=== PATIENT | male | born 1960 | race Caucasian/White ===

== ENCOUNTER 2021-04-10 08:31 | Outpatient (REF) | payer OTHER, SELFPAY ==
[2021-04-10 10:16] LABS: Creatinine Urine 142.05 mg/dL; Microalbum/Creatinine Ratio Ur 11.2 ug/mg cr
[2021-04-10 10:27] LABS: Alanine Aminotransferase 30 U/L (0-40); Albumin Level 4.3 g/dL (3.5-5.0); Alkaline Phosphatase 84 U/L (39-117); Anion Gap 11 (12-20); Aspartate Amino Transferase 21 U/L (5-37); Bilirubin Total 0.9 mg/dL (0.0-1.0); Blood Urea Nitrogen 17 mg/dL (9-16); Carbon Dioxide 26 mmol/L (22-29); Chloride 108 mmol/L (96-108); Cholesterol 142 mg/dL; Estimated Glomerular Filt Rate > 60; Glucose Fasting 136 mg/dL (60-99); HDL Cholesterol 34 mg/dL; LDL Cholesterol Calculated 87 mg/dl; Potassium 4.4 mmol/L (3.3-5.1); Sodium 141 mmol/L (135-145); Total Protein 6.8 g/dL (6.5-8.0); Triglycerides 109 mg/dL
== END 2021-04-10 08:32 | disposition home or self-care (01) ==
LOC: HO.LAB 08:31
PROVIDERS: PCP Internal Medicine; Visit Provider Internal Medicine
DX: E11.9 Type 2 diabetes mellitus without complications (principal); E78.5 Hyperlipidemia, unspecified
CPT/HCPCS: 36415; 80053; 80061; 80156; 82043

== ENCOUNTER 2022-11-12 07:37 | Outpatient (REF) | payer OTHER, SELFPAY ==
[2022-11-12 09:19] LABS: Alanine Aminotransferase 30 U/L (0-40); Albumin Level 4.2 g/dL (3.5-5.0); Alkaline Phosphatase 79 U/L (39-117); Anion Gap 13 (12-20); Aspartate Amino Transferase 23 U/L (5-37); Bilirubin Total 0.8 mg/dL (0.0-1.0); Blood Urea Nitrogen 15 mg/dL (9-16); Calcium 9.2 mg/dL (8.4-10.2); Carbon Dioxide 25 mmol/L (22-29); Chloride 109 mmol/L (96-108); Cholesterol 125 mg/dL; Estimated Glomerular Filt Rate > 60; Glucose Fasting 112 mg/dL (60-99); HDL Cholesterol 37 mg/dL; LDL Cholesterol Calculated 70 mg/dl; Potassium 4.5 mmol/L (3.3-5.1); Sodium 142 mmol/L (135-145); Total Protein 6.4 g/dL (6.5-8.0); Triglycerides 93 mg/dL
[2022-11-12 12:42] LABS: Creatinine Urine 133.02 mg/dL; Microalbum/Creatinine Ratio Ur 11.2 ug/mg cr
== END 2022-11-12 07:38 | disposition home or self-care (01) ==
LOC: HO.LAB 07:37
PROVIDERS: PCP Internal Medicine; Visit Provider Internal Medicine
DX: E78.5 Hyperlipidemia, unspecified (principal); E11.9 Type 2 diabetes mellitus without complications
CPT/HCPCS: 36415; 80053; 80061; 82043

== ENCOUNTER 2023-05-15 16:17 | Outpatient (AMB) | payer OTHER, SELFPAY ==
[2023-05-15 16:19] VITALS: BP 160/98; BMI 27.8
--- NOTE | 2023-05-15 16:19 | A.OFFPC_ITS ---
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 Accompanied by: Self / Same As Patient Allergies peanut [PEANUT] Allergy (Severe, Verified 05/15/23 16:41) ANAPHYLAXIS Medication List - Last Reconciled 05/15/23 by Violeta Ann MD amlodipine 10 mg PO DAILY 90 days atorvastatin 20 mg PO BEDTIME 90 days ibuprofen 800 mg PO Q8H PRN lisinopril 30 mg PO DAILY 90 days metformin 850 mg PO BID 90 days Tobacco use date assessed: 05/15/23 Dental Screening Dental Screen Date: 05/15/23 Did you have a dental visit in the last 12 months?: Yes Did you have a dental problem in the last 6 months where you did not have access to dental care?: No Was dental information given to patient?: Patient has dentist HPI HPI Comments History of Present Illness Details This is a 62-year-old male with diabetes mellitus type 2 that comes for his physical exam. A1c is within goal. Last diabetic eye exam was this month. Last colonoscopy was 2015. No chest pain or shortness of breath. Blood pressure elevated and he forgot his medications today. Blood pressure will be recheck by nurse navigator in 3 weeks. [facility] Medical History (Updated 05/15/23 @ 16:49 by Violeta Ann MD) Allergic rhinitis Diabetes mellitus Essential hypertension Pure hypercholesterolemia Right shoulder pain Surgical History History of lipoma Family History Father No problems noted. Mother Diabetes Maternal Grandmother No problems noted. Maternal Grandfather No problems noted. Paternal Grandmother No problems noted. Paternal Grandfather No problems noted. Social History Housing: House Alcohol intake: current Alcohol intake frequency: holidays/special occasions only Alcohol type: other Patient Tobacco Use Status: Former Tobacco user e-Cigarette/Vaping Use: Never Used Second Hand Smoke Exposure: Yes service: No Current occupational status: employed Current occupational exposures/hazards: No Cognitive needs: No Hearing needs: No Vision needs: No Questionnaire Thrive Questionnaire Date Thrive assessed: 11/09/22 ERIC-7 AMB Questionnaire ERIC-7 Date ERIC - 7 assessed: 11/09/22 Source: Developed by Drs. Mert De La Torre, Rhona Linn, Ilya Musa and colleagues, with an educational kristina from [employer]. Review of Systems Const All systems reviewed & are unremarkable except as noted in HPI and below Eyes Reports no additional complaints, Denies change in vision and Denies other visual disturbances Card Denies chest pain at rest, Denies chest pain with activity, Denies edema, Denies irregular heart rhythm, Denies claudication, Denies dyspnea, Denies dyspnea on exertion, Denies orthopnea, Denies paroxysmal nocturnal dyspnea and Denies slow heart rate Resp Denies cough, Denies dyspnea and Denies dyspnea on exertion GI Denies abdominal pain, Denies change in bowel habits, Denies excessive flatus, Denies nausea and Denies vomiting Denies urinary hesitancy, Denies urinary incontinence and Denies urinary urgency Musc Denies abnormal gait, Denies atrophy, Denies deformity and Denies limited range of motion Skin/Breast Denies bleeding lesions, Denies changing lesions and Denies rash Neuro Denies abnormal gait and Denies lack of coordination Physical exam (Primary Care) Vital Signs: Last Vital Signs BP 160/98 H 05/15/23 16:19 BMI result Body Mass Index 27.8 Tobacco/Smoking Status: Tobacco use Status Tobacco use date assessed 05/15/23 05/15/23 16:25 Patient Tobacco Use Status Former Tobacco user 05/15/23 16:25 e-Cigarette/Vaping Use Never Used 05/15/23 16:25 Thrive Assessment: Date of Thrive Assessment Date Thrive assessed 11/09/22 05/15/23 16:25 Const Orientation/consciousness: patient oriented x3 HENMT Head: Yes normal to inspection, Yes normocephalic and Yes atraumatic Ears: external ears normal Eyes General: appearance normal, both eyes and all related structures Eyelids: Yes eyelids normal Conjunctivae: conjunctivae normal Neck Neck: Yes normal visual inspection and Yes supple Resp Effort & Inspection: normal respiratory effort Auscultation: clear to auscultation bilaterally Cardio Jugular venous distension: no JVD Rate: regular rate Rhythm: regular rhythm Heart sounds: S1 normal heart sound present and S2 normal heart sound present GI Inspection: Yes normal to inspection Palpation (GI): Soft to palpation and nontender Auscultation: normal bowel sounds Skin General skin exam: no rashes or lesions noted Neuro General: patient oriented x3 and no focal motor deficits Extrem General: Yes full ROM Psych Appearance: grossly normal Results AMB Hemoglobin A1c AMB Hemoglobin A1c 6.7 % Last Edit by RYLEE Aceves on 05/15/23 16:3 5 Results Reviewed Results Reviewed: Laboratory Last Values Hgb A1c (Clinic) 6.7 % (4.0-6.0) H 05/15/23 16:30 Assessment and Plan Assessment & Plan (1) Physical exam: Code(s): Z00.00 - Encounter for general adult medical examination without abnormal findings Plan: Repeat in a year (2) Diabetes mellitus: Code(s): E11.9 - Type 2 diabetes mellitus without complications Qualifiers: Diabetes mellitus type: type 2 Diabetes mellitus intermediate insulin use: without intermediate use Diabetes mellitus complication status: without complication Qualified Code(s): E11.9 - Type 2 diabetes mellitus without complications Plan: Continue metformin. A1c goal is equal or less than 7%. Orders: Orders Comprehensive [place]. Panel Fast 5 Months E11.9 - Type 2 diabetes mellitus without complications Lipid Panel 5 Months E78.5 - Hyperlipidemia, unspecified Microalbumin, Random (w Creat) 5 Months E11.9 - Type 2 diabetes mellitus without complications AMB Hemoglobin A1c Today E11.9 - Type 2 diabetes mellitus without complications Coding Level of Care Code Est Pt Prev Care 40-64y(50867) Diagnoses Physical exam Z00.00 Diabetes mellitus E11.9 Diabetes mellitus type: type 2 Diabetes mellitus lobsterman insulin use: without lobsterman use Diabetes mellitus complication status: without complication Time Spent (min) 33
[2023-05-15 16:51] VITALS: BP 150/90
== END 2023-05-15 16:50 | disposition home or self-care (01) ==
PROVIDERS: Visit Provider Internal Medicine
DX: Z00.00 Encounter for general adult medical examination without abnormal findings (principal); E11.9 Type 2 diabetes mellitus without complications
CPT/HCPCS: 83036; 99396

== ENCOUNTER 2023-09-14 08:56 | Outpatient (REF) | payer OTHER, SELFPAY ==
[2023-09-14 09:49] LABS: Alanine Aminotransferase 22 U/L (0-40); Albumin Level 4.2 g/dL (3.5-5.0); Alkaline Phosphatase 73 U/L (39-117); Anion Gap 13 (12-20); Aspartate Amino Transferase 17 U/L (5-37); Bilirubin Total 0.5 mg/dL (0.0-1.0); Blood Urea Nitrogen 15 mg/dL (9-16); Carbon Dioxide 26 mmol/L (22-29); Chloride 109 mmol/L (96-108); Cholesterol 143 mg/dL (<200); Estimated Glomerular Filt Rate > 60; Glucose Fasting 126 mg/dL (60-99); HDL Cholesterol 40 mg/dL (>40); LDL Cholesterol Calculated 91 mg/dL (<100); Potassium 3.7 mmol/L (3.3-5.1); Sodium 144 mmol/L (135-145); Total Protein 6.8 g/dL (6.5-8.0); Triglycerides 64 mg/dL (<150)
[2023-09-14 12:40] LABS: Creatinine Urine 148.65 mg/dL; Microalbum/Creatinine Ratio Ur 12.7 ug/mg cr (<30)
== END 2023-09-14 08:57 | disposition home or self-care (01) ==
LOC: HO.LAB 08:56
PROVIDERS: PCP Internal Medicine; Visit Provider Internal Medicine
DX: E11.9 Type 2 diabetes mellitus without complications (principal); E78.5 Hyperlipidemia, unspecified
CPT/HCPCS: 36415; 80053; 80061; 82043; 82570

== ENCOUNTER 2023-09-20 16:23 | Outpatient (AMB) | payer OTHER, SELFPAY ==
--- NOTE | 2023-09-20 16:27 | MHC.PC.OV ---
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 Accompanied by: Self / Same As Patient Allergies peanut [PEANUT] Allergy (Severe, Verified 09/20/23 16:40) ANAPHYLAXIS Medication List - Last Reconciled 09/20/23 by Violeta Ann MD amlodipine 10 mg PO DAILY 90 days atorvastatin 20 mg PO BEDTIME 90 days ibuprofen 800 mg PO Q8H PRN lisinopril 30 mg PO DAILY 90 days metformin 850 mg PO BID 90 days Tobacco use date assessed: 05/15/23 Dental Screening Dental Screen Date: 09/20/23 Did you have a dental visit in the last 12 months?: No Did you have a dental problem in the last 6 months where you did not have access to dental care?: No Was dental information given to patient?: Patient has dentist HPI HPI Comments History of Present Illness Details This is a 63-year-old male with diabetes mellitus type 2, hypertension, pure hypercholesterolemia and allergic rhinitis that comes today for follow-up on his conditions. A1c elevated and he is only taking metformin once a day and was advised to take it twice a day. Blood pressure elevated and he forgot to take his medications today. Blood pressure will be recheck in 3 weeks by nurse navigator. LDL not on goal and he admits not been compliant with low-cholesterol diet. Lipid panel will be repeated in 4 months. No chest pain or shortness of breath. Allergic rhinitis stable with antihistamines as needed. [facility] Medical History Right shoulder pain Allergic rhinitis Pure hypercholesterolemia Diabetes mellitus Essential hypertension Surgical History History of lipoma Family History Father No problems noted. Mother Diabetes Maternal Grandmother No problems noted. Maternal Grandfather No problems noted. Paternal Grandmother No problems noted. Paternal Grandfather No problems noted. Social History Housing: House Alcohol intake: current Alcohol intake frequency: holidays/special occasions only Alcohol type: other Patient Tobacco Use Status: Former Tobacco user e-Cigarette/Vaping Use: Never Used Second Hand Smoke Exposure: Yes service: No Current occupational status: employed Current occupational exposures/hazards: No Cognitive needs: No Hearing needs: No Vision needs: No Questionnaire Thrive Questionnaire Date Thrive assessed: 11/09/22 ERIC-7 AMB Questionnaire ERIC-7 Date ERIC - 7 assessed: 11/09/22 Source: Developed by Drs. Mert De La Torre, Rhona Linn, Ilya Musa and colleagues, with an educational kristina from [employer]. Review of Systems Const All systems reviewed & are unremarkable except as noted in HPI and below Eyes Reports no additional complaints, Denies change in vision and Denies other visual disturbances Card Denies chest pain at rest, Denies chest pain with activity, Denies edema, Denies irregular heart rhythm, Denies claudication, Denies dyspnea, Denies dyspnea on exertion, Denies orthopnea, Denies paroxysmal nocturnal dyspnea and Denies slow heart rate Resp Denies cough, Denies dyspnea and Denies dyspnea on exertion GI Denies abdominal pain, Denies change in bowel habits, Denies excessive flatus, Denies nausea and Denies vomiting Denies urinary hesitancy, Denies urinary incontinence and Denies urinary urgency Musc Denies abnormal gait, Denies atrophy, Denies deformity and Denies limited range of motion Skin/Breast Denies bleeding lesions, Denies changing lesions and Denies rash Neuro Denies abnormal gait, Denies behavioral changes and Denies lack of coordination Psych Denies behavioral changes Physical exam (Primary Care) Vital Signs: Last Vital Signs BP 180/102 H 09/20/23 16:28 BMI result Body Mass Index 27.9 Tobacco/Smoking Status: Tobacco use Status Tobacco use date assessed 05/15/23 09/20/23 16:32 Patient Tobacco Use Status Former Tobacco user 09/20/23 16:32 e-Cigarette/Vaping Use Never Used 09/20/23 16:32 Thrive Assessment: Date of Thrive Assessment Date Thrive assessed 11/09/22 09/20/23 16:32 Eyes General: appearance normal, both eyes and all related structures Eyelids: Yes eyelids normal Conjunctivae: conjunctivae normal Neck Neck: Yes normal visual inspection and Yes supple Resp Effort & Inspection: normal respiratory effort Auscultation: clear to auscultation bilaterally Cardio Jugular venous distension: no JVD Rate: regular rate Rhythm: regular rhythm Heart sounds: S1 normal heart sound present and S2 normal heart sound present Extrem General: Yes full ROM Office Procedures Flu Questionnaire Does the patient have a severe egg allergy?: No Results AMB Hemoglobin A1c AMB Hemoglobin A1c 7.2 % Last Edit by RYLEE Aceves on 09/20/23 16:38 Immunizations flu vacc [id number] 6mos up(PF) 60 mcg(15 mcgx4)/0.5 mL IM syringe Performing Provider: Violeta Ann MD [facility] Documented (not given) by: RYLEE Aceves on 09/20/23 16:37 Reason Not Given: Patient Refused Results Reviewed Results Reviewed: Laboratory Last Values Hgb A1c (Clinic) 7.2 % (4.0-6.0) H 09/20/23 16:33 Assessment and Plan Assessment & Plan (1) Diabetes mellitus: Code(s): E11.9 - Type 2 diabetes mellitus without complications Qualifiers: Diabetes mellitus type: type 2 Diabetes mellitus mcfp insulin use: without predatory animal exterminator use Diabetes mellitus complication status: without complication Qualified Code(s): E11.9 - Type 2 diabetes mellitus without complications Plan: Start taking metformin twice a day. A1c goal is equal or less than 7%. (2) Essential hypertension: Code(s): I10 - Essential (primary) hypertension Plan: Be compliant with amlodipine and lisinopril. Blood pressure goal is equal or less than 130/80. Recheck blood pressure with nurse navigator in 3 weeks. (3) Pure hypercholesterolemia: Code(s): E78.00 - Pure hypercholesterolemia, unspecified Plan: Continue statins. Be compliant with low-cholesterol diet. LDL goal is less than 70. (4) Allergic rhinitis: Code(s): J30.9 - Allergic rhinitis, unspecified Plan: Continue antihistamines as needed. Orders: Orders Influenza [id number] Immunization Today Z23 - Encounter for immunization AMB Hemoglobin A1c Today E11.9 - Type 2 diabetes mellitus without complications Lipid Panel 4 Months E78.5 - Hyperlipidemia, unspecified Vitamin D 25-OH Total 4 Months E55.9 - Vitamin D deficiency, unspecified Microalbumin, Random (w Creat) 4 Months E11.9 - Type 2 diabetes mellitus without complications Comprehensive [place]. Panel Fast 4 Months E11.9 - Type 2 diabetes mellitus without complications Medications: Refilled atorvastatin 20 mg PO BEDTIME 90 tabs 1RF 90 days E78.00 - Pure hypercholesterolemia, unspecified metformin 850 mg PO BID 180 tabs 1RF 90 days E11.9 - Type 2 diabetes mellitus without complications Coding Level of Care Code Est Pt Level 4 (17476) Diagnoses Type 2 diabetes mellitus without complication, without long-term current use of insulin E11.9 Diabetes mellitus type: type 2 Diabetes mellitus predatory animal exterminator insulin use: without mcfp use Diabetes mellitus complication status: without complication Essential hypertension I10 Pure hypercholesterolemia E78.00 Allergic rhinitis J30.9 Time Spent (min) 24
[2023-09-20 16:28] VITALS: BP 180/102; BMI 27.9
[2023-09-20 17:09] VITALS: BP 180/100
== END 2023-09-20 16:49 | disposition home or self-care (01) ==
PROVIDERS: PCP Internal Medicine; Visit Provider Internal Medicine
DX: E11.9 Type 2 diabetes mellitus without complications (principal); I10 Essential (primary) hypertension; E78.00 Pure hypercholesterolemia, unspecified; J30.9 Allergic rhinitis, unspecified
CPT/HCPCS: 83036; 99214

== ENCOUNTER 2024-01-13 08:41 | Outpatient (REF) | payer OTHER, SELFPAY ==
[2024-01-13 11:05] LABS: Alanine Aminotransferase 21 U/L (0-40); Albumin Level 4.1 g/dL (3.5-5.0); Alkaline Phosphatase 74 U/L (39-117); Anion Gap 9 (12-20); Aspartate Amino Transferase 20 U/L (5-37); Bilirubin Total 0.7 mg/dL (0.0-1.0); Blood Urea Nitrogen 13 mg/dL (9-16); Calcium 9.2 mg/dL (8.4-10.2); Carbon Dioxide 29 mmol/L (22-29); Chloride 108 mmol/L (96-108); Cholesterol 130 mg/dL (<200); Estimated Glomerular Filt Rate > 60; Glucose Fasting 114 mg/dL (60-99); HDL Cholesterol 37 mg/dL (>40); LDL Cholesterol Calculated 78 mg/dL (<100); Potassium 4.3 mmol/L (3.3-5.1); Sodium 142 mmol/L (135-145); Total Protein 6.8 g/dL (6.5-8.0); Triglycerides 78 mg/dL (<150)
[2024-01-13 11:21] LABS: Vitamin D 25-OH Total 11.1 ng/mL (>30)
[2024-01-13 12:06] LABS: Creatinine Urine 144.96 mg/dL; Microalbum/Creatinine Ratio Ur 8.9 ug/mg cr (<30)
== END 2024-01-13 08:42 | disposition home or self-care (01) ==
LOC: HO.LAB 08:41
PROVIDERS: PCP Internal Medicine; Visit Provider Internal Medicine
DX: E78.5 Hyperlipidemia, unspecified (principal); E78.00 Pure hypercholesterolemia, unspecified; E55.9 Vitamin D deficiency, unspecified; E11.9 Type 2 diabetes mellitus without complications
CPT/HCPCS: 36415; 80053; 80061; 82043; 82306; 82570

== ENCOUNTER 2024-01-15 16:12 | Outpatient (AMB) | payer OTHER, SELFPAY ==
[2024-01-15 16:08] VITALS: BP 148/98; PULSE 67; O2SAT 98; BMI 28.0
--- NOTE | 2024-01-15 16:08 | A.OFFPC_ITS ---
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 by: Self / Same As Patient Allergies peanut [PEANUT] Allergy (Severe, Verified 01/15/24 16:27) ANAPHYLAXIS Medication List - Last Reconciled 01/15/24 by Violeta Ann MD amlodipine 10 mg PO DAILY 90 days atorvastatin 20 mg PO BEDTIME 90 days ibuprofen 800 mg PO Q8H PRN lisinopril 30 mg PO DAILY 90 days metformin 850 mg PO BID 90 days Tobacco use date assessed: 01/15/24 Dental Screening Dental Screen Date: 01/15/24 Did you have a dental visit in the last 12 months?: No Did you have a dental problem in the last 6 months where you did not have access to dental care?: No HPI HPI Comments History of Present Illness Details This is a 63-year-old male with diabetes mellitus type 2 that comes for his physical exam. A1c within goal. Last diabetic eye exam was 2022. Last colonoscopy was 2015 and next colonoscopy should be 2025. No chest pain or shortness of breath. Labs were discussed and vitamin-D is low and will be supplemented. LDL has improved and is very close to goal. [facility] Medical History Right shoulder pain Allergic rhinitis Pure hypercholesterolemia Diabetes mellitus Essential hypertension Surgical History History of lipoma Family History Father No problems noted. Mother Diabetes Maternal Grandmother No problems noted. Maternal Grandfather No problems noted. Paternal Grandmother No problems noted. Paternal Grandfather No problems noted. Social History Housing: House Alcohol intake: current Alcohol intake frequency: holidays/special occasions only Alcohol type: other Patient Tobacco Use Status: Former Tobacco user e-Cigarette/Vaping Use: Never Used Second Hand Smoke Exposure: Yes service: No Current occupational status: employed Current occupational exposures/hazards: No Cognitive needs: No Hearing needs: No Vision needs: No Questionnaire PHQ-9 Over the last 2 weeks, how often have you been bothered by any of the following problems? 1. Little interest or pleasure in doing things: not at all 2. Feeling down, depressed, or hopeless: not at all 3. Trouble falling or staying asleep, or sleeping too much: not at all 4. Feeling tired or having little energy: not at all 5. Poor appetite or overeating: not at all 6. Feeling bad about yourself - or that you are a failure or have let yourself or your family down: not at all 7. Trouble concentrating on things, such as reading the newspaper or watching television: not at all 8. Moving or speaking so slowly that other people could have noticed. Or the opposite - being so fidgety or restless that you have been moving around a lot more than usual: not at all 9. Thoughts that you would be better off or of hurting yourself in some way: not at all Total score: 0 Depression Screening Interpretation: Negative Depression Screening Done: Yes 38664 - PHQ-9 Billing: Yes Source: Developed by Drs. Mert De La Torre, Rhona Linn, Ilya Musa and colleagues, with an educational kristina from [email or web address]. Thrive Questionnaire Date Thrive assessed: 01/15/24 I am a: Patient What is your living situation today?: I have a steady place to live Within the past 12 months, did the food you bought not last and you didn't have the money to get more?: Never true Within the past 12 months, did you worry whether your food would run out before you got money to buy more?: Never true Do you have trouble paying for medicines?: No Do you have trouble getting transportation to medical appointments?: No Do you have trouble paying your heating and electricity bill?: No Do you have trouble taking care of your child, family member or friend?: No Do you have trouble with day-to-day activities such as bathing, preparing meals, shopping, managing finances, etc.?: No Are you currently unemployed and looking for a job?: No Are you interested in more education?: No Please select the resources that you would like help with: None Currently or been in a relationship where the following occur: no concerns reported THRIVE Score: 0 AUDIT C Alcohol Use Questionnaire (AUDIT-C) 1. How often do you have a drink containing alcohol?: Monthly or less 2. How many drinks containing alcohol do you have on a typical day when you are drinking?: 1 or 2 3. How often do you have six or more drinks on one occasion?: Never Total Score: 1 Score Reviewed/Action Taken: No ERIC-7 AMB Questionnaire ERIC-7 Date ERIC - 7 assessed: 01/15/24 Feeling nervous, anxious, or on edge: 0 = Not at all Not being able to stop or control worryin = Not at all Worrying too much about different things: 0 = Not at all Trouble relaxin = Not at all Being so restless that it is hard to sit still: 0 = Not at all Becoming easily annoyed or irritable: 0 = Not at all Feeling afraid as if something awful might happen: 0 = Not at all Total ERIC-7 score (0-4 normal; 5-9 mild; 10-14 moderate; 15-21 severe): 0 Source: Developed by Drs. Mert De La Torre, Rhona Linn, Ilya Musa and colleagues, with an educational kristina from [email or web address]. ERIC-7 Assessment Billing ERIC-7 Assessment Tool: ERIC-7 Assessment 63692 Review of Systems Const All systems reviewed & are unremarkable except as noted in HPI and below Eyes Reports no additional complaints, Denies change in vision and Denies other visual disturbances Card Denies chest pain at rest, Denies chest pain with activity, Denies edema, Denies irregular heart rhythm, Denies claudication, Denies dyspnea, Denies dyspnea on exertion, Denies orthopnea, Denies paroxysmal nocturnal dyspnea and Denies slow heart rate Resp Denies cough, Denies dyspnea and Denies dyspnea on exertion GI Denies abdominal pain, Denies change in bowel habits, Denies excessive flatus, Denies nausea and Denies vomiting Denies urinary hesitancy, Denies urinary incontinence and Denies urinary urgency Musc Denies atrophy, Denies deformity and Denies limited range of motion Physical exam (Primary Care) Vital Signs: Last Vital Signs Pulse 67 01/15/24 16:08 BP 148/98 H 01/15/24 16:08 Pulse Ox 98 01/15/24 16:08 Oxygen Delivery Method Room Air 01/15/24 16:08 BMI result Body Mass Index 28.0 Tobacco/Smoking Status: Tobacco use Status Tobacco use date assessed 01/15/24 01/15/24 16:10 Patient Tobacco Use Status Former Tobacco user 01/15/24 16:10 e-Cigarette/Vaping Use Never Used 01/15/24 16:10 PHQ-9: PHQ-9 Score PHQ-9: Total score 0 01/15/24 16:31 Depression Screening Interpretation: Negative Thrive Assessment: Date of Thrive Assessment Date Thrive assessed 01/15/24 01/15/24 16:10 Currently or been in a relationship where the following occur: no concerns reported Const Orientation/consciousness: patient oriented x3 HENMT Head: Yes normal to inspection, Yes normocephalic and Yes atraumatic Ears: external ears normal Eyes General: appearance normal, both eyes and all related structures Eyelids: Yes eyelids normal Conjunctivae: conjunctivae normal Neck Neck: Yes normal visual inspection and Yes supple Resp Effort & Inspection: normal respiratory effort Auscultation: clear to auscultation bilaterally Cardio Jugular venous distension: no JVD Rate: regular rate Rhythm: regular rhythm Heart sounds: S1 normal heart sound present and S2 normal heart sound present GI Inspection: Yes normal to inspection Palpation (GI): Soft to palpation and nontender Auscultation: normal bowel sounds Skin General skin exam: no rashes or lesions noted Neuro General: patient oriented x3 and no focal motor deficits Extrem General: Yes full ROM Psych Appearance: grossly normal Results AMB Hemoglobin A1c AMB Hemoglobin A1c 6.3 % Last Edit by RYLEE Pro on 01/15/24 16:20 Results Reviewed Results Reviewed: Laboratory Last Values Hgb A1c (Clinic) 6.3 % (4.0-6.0) H 01/15/24 15:47 Assessment and Plan Assessment & Plan (1) Physical exam: Code(s): Z00.00 - Encounter for general adult medical examination without abnormal findings Plan: Repeat in a year. (2) Diabetes mellitus: Code(s): E11.9 - Type 2 diabetes mellitus without complications Qualifiers: Diabetes mellitus type: type 2 Diabetes mellitus lobsterman insulin use: without lobsterman use Diabetes mellitus complication status: without complication Qualified Code(s): E11.9 - Type 2 diabetes mellitus without complications Plan: Continue metformin. A1c goal is equal or less than 7%. Orders: Orders Vitamin D 25-OH Total 4 Months E55.9 - Vitamin D deficiency, unspecified Comprehensive [place]. Panel Fast 4 Months E11.9 - Type 2 diabetes mellitus without complications AMB Hemoglobin A1c Today E11.9 - Type 2 diabetes mellitus without complications Lipid Panel 4 Months E78.5 - Hyperlipidemia, unspecified Microalbumin, Random (w Creat) 4 Months E11.9 - Type 2 diabetes mellitus without complications Medications: New cholecalciferol (vitamin D3) 50 mcg PO DAILY 90 caps 0RF 90 days Refilled atorvastatin 20 mg PO BEDTIME 90 tabs 1RF 90 days E78.00 - Pure hypercholesterolemia, unspecified amlodipine 10 mg PO DAILY 90 tabs 2RF 90 days E11.9 - Type 2 diabetes mellitus without complications lisinopril 30 mg PO DAILY 90 tabs 1RF 90 days E11.9 - Type 2 diabetes mellitus without complications metformin 850 mg PO BID 180 tabs 1RF 90 days E11.9 - Type 2 diabetes mellitus without complications ibuprofen 800 mg PO Q8H PRN 90 tabs 2RF for pain Coding Level of Care Code Est Pt Prev Care 40-64y(66925) Diagnoses Physical exam Z00.00 Type 2 diabetes mellitus without complication, without long-term current use of insulin E11.9 Diabetes mellitus type: type 2 Diabetes mellitus half-way insulin use: without lobsterman use Diabetes mellitus complication status: without complication Additional Codes ERIC-7 Assessment Billing - ERIC-7 Assessment Tool: ERIC-7 Assessment [id number] ([id number]) Time Spent (min) 32
[2024-01-15 17:03] VITALS: BP 145/95
== END 2024-01-15 16:44 | disposition home or self-care (01) ==
PROVIDERS: PCP Internal Medicine; Visit Provider Internal Medicine
DX: Z00.00 Encounter for general adult medical examination without abnormal findings (principal); E11.9 Type 2 diabetes mellitus without complications
CPT/HCPCS: 83036; 99396

== ENCOUNTER 2024-05-25 09:35 | Outpatient (REF) | payer OTHER, SELFPAY ==
[2024-05-25 12:07] LABS: Alanine Aminotransferase 26 U/L (0-40); Albumin Level 4.2 g/dL (3.5-5.0); Alkaline Phosphatase 85 U/L (39-117); Anion Gap 12 (12-20); Aspartate Amino Transferase 25 U/L (5-37); Bilirubin Total 0.4 mg/dL (0.0-1.0); Blood Urea Nitrogen 16 mg/dL (9-16); Calcium 9.4 mg/dL (8.4-10.2); Carbon Dioxide 27 mmol/L (22-29); Chloride 109 mmol/L (96-108); Cholesterol 100 mg/dL (<200); Estimated Glomerular Filt Rate > 60; Glucose Fasting 147 mg/dL (60-99); HDL Cholesterol 39 mg/dL (>40); LDL Cholesterol Calculated 53 mg/dL (<100); Potassium 4.3 mmol/L (3.3-5.1); Sodium 144 mmol/L (135-145); Total Protein 6.8 g/dL (6.5-8.0); Triglycerides 42 mg/dL (<150)
[2024-05-25 12:23] LABS: Creatinine Urine 78.05 mg/dL; Microalbumin Urine < 5.0 mg/L
[2024-05-25 12:24] LABS: Vitamin D 25-OH Total 40.4 ng/mL (>30)
== END 2024-05-25 09:36 | disposition home or self-care (01) ==
LOC: HO.LAB 09:35
PROVIDERS: PCP Internal Medicine; Visit Provider Internal Medicine
DX: E78.5 Hyperlipidemia, unspecified (principal); E55.9 Vitamin D deficiency, unspecified; E11.9 Type 2 diabetes mellitus without complications
CPT/HCPCS: 36415; 80053; 80061; 82043; 82306; 82570

== ENCOUNTER 2024-09-16 10:09 | Outpatient (AMB) | payer OTHER, SELFPAY ==
--- NOTE | 2024-09-16 10:24 | AM.OFFWIN_ITS ---
Intake Vital Signs 09/16/24 10:26 Weight 201 lb BP 140/100 H Blood Pressure Location Lt brachial Position Sitting Pulse 59 Pulse Source Pulse Oximeter Pulse Oximetry (%) 98 Oxygen Delivery Method Room Air Intake Visit Reasons: EP Pain in lt foot Intake Note: Patient here for left leg pain after missing a step and falling last week. Patient Tobacco Use Status: Former Tobacco user Allergies peanut [PEANUT] Allergy (Severe, Verified 09/16/24 10:26) ANAPHYLAXIS Do you need a note to return to daycare/school/sports/work: No HPI HPI Comments History of Present Illness Details History of Present Illness The patient is a 63-year-old male presenting with left ankle pain and swelling following an accident. The injury occurred last when the patient missed a step while descending stairs. He has been experiencing significant pain and swelling on the outside of the left foot since the incident. The patient has not applied ice but has used a cream which he reported as ineffective. He attempted using ibuprofen 800 mg for pain relief with minimal improvement. The pain is primarily present when weight-bearing and with motion. The patient was able to bear weight immediately post-injury. Physical Exam General: Cooperative, healthy appearing, comfortable, no acute distress and well developed Orientation: Patient oriented x3 Limitations: No limitations Head: Normal to inspection Ears: Hearing grossly normal bilaterally Nose: Normal external nose present Face and sinus: Normal facial exam Eyes: Appearance normal, both eyes and all related structures Neck: Normal visual inspection and Yes full ROM Respiratory: Normal respiratory effort and able to speak in complete sentences Skin: No rashes or lesions noted Neuro: Patient oriented x3 Extremities: Edema and ttp lateral left foot. No TTP on the lateral or medial malleolus or top of foot. normal gait. [facility] Medical History Right shoulder pain Allergic rhinitis Pure hypercholesterolemia Diabetes mellitus Essential hypertension Surgical History History of lipoma Family History Father No problems noted. Mother Diabetes Maternal Grandmother No problems noted. Maternal Grandfather No problems noted. Paternal Grandmother No problems noted. Paternal Grandfather No problems noted. Social History Housing: House Alcohol intake: current Alcohol intake frequency: holidays/special occasions only Alcohol type: other Patient Tobacco Use Status: Former Tobacco user e-Cigarette/Vaping Use: Never Used Second Hand Smoke Exposure: Yes service: No Current occupational status: employed Current occupational exposures/hazards: No Cognitive needs: No Hearing needs: No Vision needs: No Review of Systems Const All systems reviewed & are unremarkable except as noted in HPI and below Physical Exam Vital Signs: Last Vital Signs Pulse 59 09/16/24 10:26 BP 140/100 H 09/16/24 10:26 Pulse Ox 98 09/16/24 10:26 Oxygen Delivery Method Room Air 09/16/24 10:26 Assessment & Plan Assessment & Plan (1) Sprain of left ankle: Code(s): S93.402A - Sprain of unspecified ligament of left ankle, initial encounter Qualifiers: Encounter type: initial encounter Involved ligament of ankle: anterior talofibular ligament Qualified Code(s): S93.492A - Sprain of other ligament of left ankle, initial encounter Plan: Plan - No XR indicated as per [place] [facility] Rules - Apply Cheikh wrap to the right ankle for support and to manage swelling; demonstrate proper wrapping technique for home care. - Advise the use of ice applications several times daily for 20-minute intervals. - Recommend the administration of naproxen Aleve every 12 hours for pain and inflammation control, ensuring the absence of contraindications such as kidney issues. - Instruct gradual weaning off wrap and medication as swelling and pain decrease, and advise continued monitoring of the condition. - If symptoms do not improve over the coming weeks, recommend follow-up with the primary care provider for further evaluation. Patient was informed and verbally consented to the use of an ambient scribe for clinic note documentation during this visit. Coding Level of Care Code Est Pt Level 3 (16758) Diagnoses Sprain of anterior talofibular ligament of left ankle, initial encounter S93.492A Encounter type: initial encounter Involved ligament of ankle: anterior talofibular ligament
[2024-09-16 10:26] VITALS: BP 140/100; PULSE 59; O2SAT 98
== END 2024-09-16 10:42 | disposition home or self-care (01) ==
PROVIDERS: PCP Internal Medicine; Visit Provider Physician Assistant
DX: S93.492A Sprain of other ligament of left ankle, initial encounter (principal)

== ENCOUNTER → 2024-09-16 10:09 | Outpatient (BNVA) | payer OTHER, SELFPAY | PROVIDERS: PCP Internal Medicine; Visit Provider Physician Assistant | DX: S93.492A Sprain of other ligament of left ankle, initial encounter (principal); X58.XXXA Exposure to other specified factors, initial encounter; Y93.9 Activity, unspecified; Y92.9 Unspecified place or not applicable; Y99.9 Unspecified external cause status | CPT/HCPCS: 99212 ==

== ENCOUNTER 2025-01-21 16:05 | Outpatient (AMB) | payer OTHER, SELFPAY ==
--- NOTE | 2025-01-21 16:12 | MHC.PC.OV ---
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 Name: Violeta Ann MD Information Interpreted: non-clinical & clinical Accompanied by: Self / Same As Patient Allergies peanut [PEANUT] Allergy (Severe, Verified 01/21/25 16:24) ANAPHYLAXIS Medication List - Last Reconciled 01/21/25 by Violeta Ann MD amlodipine 10 mg PO DAILY 90 days atorvastatin 20 mg PO BEDTIME 90 days cholecalciferol (vitamin D3) 50 mcg PO DAILY 90 days ibuprofen 800 mg PO Q8H PRN lisinopril 30 mg PO DAILY 90 days metformin 850 mg PO BID 90 days Tobacco use date assessed: 01/21/25 Dental Screening Dental Screen Date: 01/21/25 Did you have a dental visit in the last 12 months?: No Did you have a dental problem in the last 6 months where you did not have access to dental care?: No Was dental information given to patient?: Patient has dentist HPI HPI Comments History of Present Illness Details The patient is a 64-year-old male presenting with concerns related to his annual physical examination. There is a note of elevated glycated hemoglobin (A1c) at 7.6%, indicating suboptimal diabetes control. The patient discusses stressors related to family emergencies, which might contribute to elevated blood pressure readings. His medications include amlodipine, atorvastatin, ibuprofen, vitamin D, lisinopril, and metformin. Missing a dose of amlodipine coincided with elevated blood pressure today. Management of Type 2 Diabetes involves adjusting the metformin dosage from 850 mg to 1000 mg twice daily to improve glycemic control. For hypertension, the patient is managed on amlodipine but should monitor intake to prevent further control lapses. The patient's hyperlipidemia is maintained on atorvastatin, and he has a colonoscopy screening due next year. Previous surgeries include a lipoma removal, with no reported complications. - Scheduled colonoscopy every five years with the next due next year - Tetanus vaccine last administered in 2015, next due in 2025 - Glycated hemoglobin (A1c) monitoring noted at 7.6% - Managing Type 2 Diabetes with current medication adjustments [facility] Medical History Right shoulder pain Allergic rhinitis Pure hypercholesterolemia Diabetes mellitus Essential hypertension Surgical History History of lipoma Family History Father No problems noted. Mother Diabetes Maternal Grandmother No problems noted. Maternal Grandfather No problems noted. Paternal Grandmother No problems noted. Paternal Grandfather No problems noted. Social History Housing: House Alcohol intake: current Alcohol intake frequency: holidays/special occasions only Alcohol type: other Patient Tobacco Use Status: Former Tobacco user e-Cigarette/Vaping Use: Never Used Second Hand Smoke Exposure: Yes service: No Current occupational status: employed Current occupational exposures/hazards: No Cognitive needs: No Hearing needs: No Vision needs: No Questionnaire PHQ-9 Over the last 2 weeks, how often have you been bothered by any of the following problems? 1. Little interest or pleasure in doing things: not at all 2. Feeling down, depressed, or hopeless: not at all 3. Trouble falling or staying asleep, or sleeping too much: not at all 4. Feeling tired or having little energy: not at all 5. Poor appetite or overeating: not at all 6. Feeling bad about yourself - or that you are a failure or have let yourself or your family down: not at all 7. Trouble concentrating on things, such as reading the newspaper or watching television: not at all 8. Moving or speaking so slowly that other people could have noticed. Or the opposite - being so fidgety or restless that you have been moving around a lot more than usual: not at all 9. Thoughts that you would be better off or of hurting yourself in some way: not at all Total score: 0 Depression Screening Interpretation: Negative Depression Screening Done: Yes 80175 - PHQ-9 Billing: Yes Source: Developed by Drs. Mert De La Torre, Rhona Linn, Ilya Musa and colleagues, with an educational kristina from [employer]. Thrive Questionnaire Date Thrive assessed: 04/29/25 I am a: Patient What is your living situation today?: I choose not to answer this question Within the past 12 months, did the food you bought not last and you didn't have the money to get more?: I choose not to answer this question Within the past 12 months, did you worry whether your food would run out before you got money to buy more?: I choose not to answer this question Do you have trouble paying for medicines?: No Do you have trouble getting transportation to medical appointments?: No Do you have trouble paying your heating and electricity bill?: No Do you have trouble taking care of your child, family member or friend?: No Do you have trouble with day-to-day activities such as bathing, preparing meals, shopping, managing finances, etc.?: No Are you currently unemployed and looking for a job?: No Are you interested in more education?: No Please select the resources that you would like help with: None Currently or been in a relationship where the following occur: I choose not to answer THRIVE Score: 0 AUDIT C Alcohol Use Questionnaire (AUDIT-C) 1. How often do you have a drink containing alcohol?: Monthly or less 2. How many drinks containing alcohol do you have on a typical day when you are drinking?: 1 or 2 3. How often do you have six or more drinks on one occasion?: Never Total Score: 1 Score Reviewed/Action Taken: No ERIC-7 AMB Questionnaire ERIC-7 Date ERIC - 7 assessed: 01/21/25 Feeling nervous, anxious, or on edge: 0 = Not at all Not being able to stop or control worryin = Not at all Worrying too much about different things: 0 = Not at all Trouble relaxin = Not at all Being so restless that it is hard to sit still: 0 = Not at all Becoming easily annoyed or irritable: 0 = Not at all Feeling afraid as if something awful might happen: 0 = Not at all Total ERIC-7 score (0-4 normal; 5-9 mild; 10-14 moderate; 15-21 severe): 0 Source: Developed by Drs. Mert De La Torre, Rhona Linn, Ilya Musa and colleagues, with an educational kristina from [employer]. ERIC-7 Assessment Billing ERIC-7 Assessment Tool: ERIC-7 Assessment 90868 Review of Systems Const All systems reviewed & are unremarkable except as noted in HPI and below Card Denies chest pain at rest, Denies chest pain with activity, Denies edema, Denies irregular heart rhythm, Denies claudication, Denies dyspnea, Denies dyspnea on exertion, Denies orthopnea, Denies paroxysmal nocturnal dyspnea and Denies slow heart rate Resp Denies cough, Denies dyspnea and Denies dyspnea on exertion GI Denies abdominal pain, Denies change in bowel habits, Denies excessive flatus, Denies nausea and Denies vomiting Physical exam (Primary Care) Vital Signs: Last Vital Signs BP 192/110 H 01/21/25 16:14 BMI result Body Mass Index 28.4 Tobacco/Smoking Status: Tobacco use Status Tobacco use date assessed 01/21/25 01/21/25 16:20 Patient Tobacco Use Status Former Tobacco user 01/21/25 16:20 e-Cigarette/Vaping Use Never Used 01/21/25 16:20 PHQ-9: PHQ-9 Score PHQ-9: Total score 0 01/21/25 16:29 Depression Screening Interpretation: Negative Thrive Assessment: Date of Thrive Assessment Date Thrive assessed 01/21/25 01/21/25 16:20 Currently or been in a relationship where the following occur: I choose not to answer [facility] General nose exam: Normal external nose present and No nasal discharge present Face and sinus: Yes sinuses nontender Mouth: lip normal Eyes General: appearance normal, both eyes and all related structures Eyelids: Yes eyelids normal Conjunctivae: conjunctivae normal Neck Neck: Yes normal visual inspection and Yes supple Resp Effort & Inspection: normal respiratory effort Auscultation: clear to auscultation bilaterally Cardio Jugular venous distension: no JVD Rate: regular rate Rhythm: regular rhythm Heart sounds: S1 normal heart sound present and S2 normal heart sound present GI Inspection: Yes normal to inspection Palpation (GI): Soft to palpation and nontender Auscultation: normal bowel sounds Skin General skin exam: no rashes or lesions noted Neuro General: no focal motor deficits Extrem General: Yes full ROM Psych Appearance: grossly normal Results AMB Hemoglobin A1c AMB Hemoglobin A1c 7.6 % Last Edit by RYLEE Aceves on 01/21/25 16:25 Results Reviewed Results Reviewed: Laboratory Last Values Hgb A1c (Clinic) 7.6 % (4.0-6.0) H 01/21/25 16:12 Coding Level of Care Code Est Pt Prev Care 40-64y(02631) Diagnoses Physical exam Z00.00 Type 2 diabetes mellitus without complication, without long-term current use of insulin E11.9 Diabetes mellitus type: type 2 Diabetes mellitus television servicer insulin use: without television servicer use Diabetes mellitus complication status: without complication Additional Codes ERIC-7 Assessment Billing - ERIC-7 Assessment Tool: ERIC-7 Assessment 15210 ([id number]) PHQ-9 - 02414 - PHQ-9 Billing: Yes ([id number]) Time Spent (min) 30 Assessment & Plan Assessment & Plan (1) Physical exam: Code(s): Z00.00 - Encounter for general adult medical examination without abnormal findings Category: Medical (2) Diabetes mellitus: Code(s): E11.9 - Type 2 diabetes mellitus without complications Category: Medical Qualifiers: Diabetes mellitus type: type 2 Diabetes mellitus senior care insulin use: without senior care use Diabetes mellitus complication status: without complication Qualified Code(s): E11.9 - Type 2 diabetes mellitus without complications Plan We will adjust the metformin dosage to 1000 mg twice daily to improve diabetes control. Monitoring blood pressure regularly and ensuring amlodipine adherence is crucial for hypertension management. The patient's lipid levels are managed with atorvastatin. We discussed stress management strategies given the ongoing personal stressors that may affect health status. The patient is current on vaccinations, with the tetanus booster due in 2025, and a colonoscopy is scheduled for next year. Follow-up lab work is advised to assess the effectiveness of therapy adjustments. Patient was informed and verbally consented to the use of an ambient scribe for clinic note documentation during this visit. I discussed with the patient the current status of his Type 2 Diabetes Mellitus and the need to adjust his metformin dosage to achieve better glycemic control. We reviewed his medication adherence, noting the possible impact of missing amlodipine on his blood pressure. I have advised consistency in his medication regimen. Strategies to manage life stressors and their potential health impacts were discussed, emphasizing their role in his current health status. We reviewed the importance of upcoming screenings and maintaining up-to-date vaccinations. Consent for current treatment plans and medication adjustments was obtained. Orders: Orders Vitamin D 25-OH Total Today E55.9 - Vitamin D deficiency, unspecified Lipid Panel Today E78.5 - Hyperlipidemia, unspecified Comprehensive [place]. Panel Fast Today E11.9 - Type 2 diabetes mellitus without complications AMB Hemoglobin A1c Today E11.9 - Type 2 diabetes mellitus without complications Vitamin B12 and Folate Today E53.8 - Deficiency of other specified B group vitamins Microalbumin, Random (w Creat) Today R80.9 - Proteinuria, unspecified Patient Instructions: - Increase metformin to 1000 mg twice a day. - Remember to take amlodipine daily to control blood pressure. - Follow stress management strategies. - Ensure laboratory tests are completed this week or next. - Remember tetanus booster is due in 2025. - Return for follow-up as scheduled. - Contact clinic if any new concerns or symptoms develop.
[2025-01-21 16:14] VITALS: BP 192/110; BMI 28.4
== END 2025-01-21 16:37 | disposition home or self-care (01) ==
LOC: HO.HMCH 16:06
PROVIDERS: PCP Internal Medicine; Visit Provider Internal Medicine
DX: Z00.00 Encounter for general adult medical examination without abnormal findings (principal); E11.9 Type 2 diabetes mellitus without complications

== ENCOUNTER → 2025-01-21 16:05 | Outpatient (BNVA) | payer OTHER, SELFPAY | PROVIDERS: PCP Internal Medicine; Visit Provider Internal Medicine | DX: Z00.00 Encounter for general adult medical examination without abnormal findings (principal); E11.9 Type 2 diabetes mellitus without complications; Z79.84 Long term (current) use of oral hypoglycemic drugs | CPT/HCPCS: 83036; 96127; 99396 ==

== ENCOUNTER 2025-01-24 12:37 | Outpatient (AMB) | payer OTHER, SELFPAY ==
--- NOTE | 2025-01-24 13:05 | AM.OFFVISNUR ---
Intake Visit Reasons: EP-chest tight, sob, cough Allergies peanut [PEANUT] Allergy (Severe, Verified 01/21/25 16:24) ANAPHYLAXIS Nursing Note Pt came into the [facility]. C/o chest tightness, shortness of breath and productive cough (white) x am. Pt stated that he forgot to take his medications this am. Lungs - cta. Heart rate - irregular. VS 204/111(left)- 89-96% on room air. PA-Vinny (Justine) and NATALI (Tiffanie) aware. Pt is a/o x 3. Skin pink warm and dry. Coding
--- NOTE | 2025-01-24 13:24 | MHC.OFFWIV ---
Intake Vital Signs 01/24/25 13:27 Height 5 ft 11 in Weight 204 lb BMI 28.4 BP 150/110 H Blood Pressure Location Lt brachial Position Sitting Pulse 82 Pulse Source Pulse Oximeter Temp 98 F Temp Source Oral Pulse Oximetry (%) 95 Oxygen Delivery Method Room Air Intake Visit Reasons: EP-chest tight, sob, cough Intake Note: Patient here for chest tightness, SOB, cough which started a couple of days ago. 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 History - The patient is a 64-year-old male presenting with symptoms suggestive of asthma and allergies. - Complaints include a tight chest and frequent coughing, in addition to a sore throat that commenced three days ago. - The patient describes previous similar episodes and associates symptoms with asthma. - Former use of an inhaler is indicated, though not currently available. - A history of seasonal allergies is reported, with a belief that pollen is a contributing factor to current symptoms. - Use of an unspecified allergy pill daily is indicated. - denies fevers or shortness of breath. Physical Exam General: Cooperative, healthy appearing, comfortable and no acute distress Orientation/consciousness: Patient oriented x3 Limitations: No limitations Head: Normal to inspection Ears: Hearing grossly normal bilaterally, external ears normal and TM's normal bilaterally Nose: Normal external nose present, Normal nares present and clear nasal discharge present Face and sinus: Normal facial exam and Yes sinuses nontender Mouth: Normal oral and palatal mucosa present and moist mucous membranes Throat: Yes tonsils normal, Yes uvula midline. Posterior oropharynx erythema and cobblestoning present Eyes: Appearance normal, both eyes and all related structures Neck: Normal visual inspection Respiratory: Clear to auscultation bilaterally. Normal respiratory effort, able to speak in complete sentences, Actively coughing, no respiratory distress, not tachypneic, no tripod positioning and no use of accessory muscles Cardiovascular: Regular rate and rhythm. Normal S1 and S2 Skin: No rashes or lesions noted Neuro: Patient oriented x3 Extremities: Normal to inspection and Yes no clubbing, cyanosis or edema [facility] Medical History Right shoulder pain Allergic rhinitis Pure hypercholesterolemia Diabetes mellitus Essential hypertension Surgical History History of lipoma Family History Father No problems noted. Mother Diabetes Maternal Grandmother No problems noted. Maternal Grandfather No problems noted. Paternal Grandmother No problems noted. Paternal Grandfather No problems noted. Social History Housing: House Alcohol intake: current Alcohol intake frequency: holidays/special occasions only Alcohol type: other Patient Tobacco Use Status: Former Tobacco user e-Cigarette/Vaping Use: Never Used Second Hand Smoke Exposure: Yes service: No Current occupational status: employed Current occupational exposures/hazards: No Cognitive needs: No Hearing needs: No Vision needs: No Review of Systems Const All systems reviewed & are unremarkable except as noted in HPI and below Physical Exam Vital Signs: Last Vital Signs Temp 98 F 01/24/25 13:27 Pulse 82 01/24/25 13:27 BP 150/110 H 01/24/25 13:27 Pulse Ox 95 01/24/25 13:27 Oxygen Delivery Method Room Air 01/24/25 13:27 BMI result Body Mass Index 28.4 Assessment & Plan Assessment & Plan (1) Asthma with allergic rhinitis with acute exacerbation: Code(s): J45.901 - Unspecified asthma with (acute) exacerbation Qualifiers: Asthma severity: mild Asthma persistence: intermittent Qualified Code(s): J45.21 - Mild intermittent asthma with (acute) exacerbation Plan: VSS, pt well appearing and PE remarkable for cobblestoning in posterior oropharynx. The patient will start utilizing a newly prescribed inhaler for management of suspected allergic asthma, with dosing as needed. Continuation of the daily allergy pill is advised alongside the new prescription of montelukast at night, which is to commence nightly during pollen season to assist in controlling allergic symptoms. The medications have been dispatched to the patient's preferred pharmacy for immediate collection and initiation. The patient is counseled on allergen avoidance and appropriate use of medications to alleviate symptoms. Patient was informed and verbally consented to the use of an ambient scribe for clinic note documentation during this visit Medications: New albuterol sulfate 90 mcg/actuation 2 puffs inhalation Q6H PRN 8.5 grams 0RF shortness of breath or wheezing or cough montelukast 10 mg PO BEDTIME 30 tabs 0RF Coding Level of Care Code Est Pt Level 3 (62958) Diagnoses Mild intermittent asthma with allergic rhinitis with acute exacerbation J45.21 Asthma severity: mild Asthma persistence: intermittent
[2025-01-24 13:27] VITALS: BP 150/110; PULSE 82; TEMP 36.6; O2SAT 95; BMI 28.4
== END 2025-01-24 13:50 | disposition home or self-care (01) ==
PROVIDERS: PCP Internal Medicine; Visit Provider Physician Assistant
DX: J45.21 Mild intermittent asthma with (acute) exacerbation (principal)

== ENCOUNTER 2025-01-24 12:37 | Outpatient (REF) | payer OTHER, SELFPAY | END 2025-01-24 12:38 | disposition home or self-care (01) | LOC: HO.LAB 12:37 | PROVIDERS: PCP Internal Medicine | DX: J45.21 Mild intermittent asthma with (acute) exacerbation (principal) | CPT/HCPCS: 99212 ==

== ENCOUNTER 2025-02-01 09:59 | Outpatient (REF) | payer OTHER, SELFPAY ==
[2025-02-01 15:01] LABS: Influenza A PCR NEGATIVE (Negative); Influenza B PCR NEGATIVE (Negative); Resp Syncy Virus RNA Qual PCR NEGATIVE (Negative); SARS COV2 PCR INHOUSE NEGATIVE (Negative)
== END 2025-02-01 10:00 | disposition home or self-care (01) ==
LOC: HO.LAB 09:59
PROVIDERS: PCP Internal Medicine; Visit Provider Family Medicine
DX: Z20.822 Contact with and (suspected) exposure to COVID-19 (principal); R05.9 Cough, unspecified
CPT/HCPCS: 0241U; 99212

== ENCOUNTER 2025-02-01 09:59 | Outpatient (AMB) | payer OTHER, SELFPAY ==
[2025-02-01 11:33] VITALS: BP 146/94; PULSE 80; RESP 17; TEMP 37.3; O2SAT 98; BMI 28.9
--- NOTE | 2025-02-01 11:33 | AM.OFFWIN_ITS ---
Intake Vital Signs 02/01/25 11:33 Height 5 ft 11 in Weight 207 lb BMI 28.9 BP 146/94 H Blood Pressure Location Lt brachial Position Sitting Respiration 17 Pulse 80 Pulse Source Pulse Oximeter Temp 99.2 F Temp Source Oral Pulse Oximetry (%) 98 Oxygen Delivery Method Room Air Intake Visit Reasons: EP-chest tight, sob, cough Intake Note: Pt is here today c/o chest congestion, SOB and cough x4days Patient Tobacco Use Status: Former Tobacco user Allergies peanut [PEANUT] Allergy (Severe, Verified 02/01/25 11:58) ANAPHYLAXIS HPI EP-chest tight, sob, cough HPI Details Patient says he has had nasal congestion and chest congestion for the past few days. No fevers or chill No sick contact [facility] Medical History Right shoulder pain Allergic rhinitis Pure hypercholesterolemia Diabetes mellitus Essential hypertension Surgical History History of lipoma Family History Father No problems noted. Mother Diabetes Maternal Grandmother No problems noted. Maternal Grandfather No problems noted. Paternal Grandmother No problems noted. Paternal Grandfather No problems noted. Social History Housing: House Alcohol intake: current Alcohol intake frequency: holidays/special occasions only Alcohol type: other Patient Tobacco Use Status: Former Tobacco user e-Cigarette/Vaping Use: Never Used Second Hand Smoke Exposure: Yes service: No Current occupational status: employed Current occupational exposures/hazards: No Cognitive needs: No Hearing needs: No Vision needs: No Review of Systems Const Denies chills, Denies fatigue, Denies fever(s), Denies headache(s) and Denies weakness ENT Details: See HPI Denies dizziness and Denies headache(s) Resp Details: See HPI Reports cough and Denies other ( shortness of breath) Musc Denies numbness and Denies tingling Neuro Denies dizziness, Denies headache(s), Denies numbness, Denies tingling, Denies paresthesias and Denies weakness Psych Denies anxiety and Denies depression Endo Denies fatigue Physical Exam Vital Signs: Last Vital Signs Temp 99.2 F 02/01/25 11:33 Pulse 80 02/01/25 11:33 Resp 17 02/01/25 11:33 BP 146/94 H 02/01/25 11:33 Pulse Ox 98 02/01/25 11:33 Oxygen Delivery Method Room Air 02/01/25 11:33 BMI result Body Mass Index 28.9 Const General: no acute distress and well developed Nutritional Appearance: well nourished Orientation/consciousness: patient oriented x3 HEENT Other: Significant nasal congestion with clear discharge Postnasal drip No posterior pharyngeal erythema Head: Yes normocephalic and Yes atraumatic Eyes General: appearance normal, both eyes and all related structures Pupils: Equal, round and reactive pupils present EOM: EOMs intact bilaterally Resp Other: No wheezing Has bilateral secretions sounds/upper airway secretions. Effort & Inspection: normal respiratory effort Cardio Rate: regular rate Rhythm: regular rhythm Heart sounds: S1 normal heart sound present, S2 normal heart sound present, no gallops, no murmurs and no rubs Neuro General: patient oriented x3 and gait normal Cranial nerves: Yes Equal, round and reactive pupils present Psych Affect: normal affect Assessment & Plan Assessment & Plan (1) Cough: Code(s): R05.9 - Cough, unspecified Plan: Cough and congestion with significant expectoration of secretions. Also nasal congestion and rhinitis. Likely bronchitis with mild asthma exacerbation. Start Z-Nishant and prednisone Can not rule out COVID/flu/RSV. Nasal swab will be sent to the lab Orders: Orders SARS-CoV2/FLU/RSV Today R05.9 - Cough, unspecified, Z20.822 - Contact with and (suspected) exposure to COVID-19 Medications: New azithromycin (Zithromax Z-Nishant) take 500 mg today (day 1), then 250 mg for 4 days (days 2-5) PO 6 tabs 0RF 5 days prednisone 40 mg (2 x 20 mg) PO DAILY 10 tabs 0RF 5 days Coding Level of Care Code Est Pt Level 3 (41413) Diagnoses Cough R05.9
== END 2025-02-01 13:17 | disposition home or self-care (01) ==
LOC: HO.HMCWIC 09:59
PROVIDERS: PCP Internal Medicine; Visit Provider Family Medicine
DX: R05.9 Cough, unspecified (principal)

== ENCOUNTER 2025-05-24 07:50 | Outpatient (REF) | payer OTHER, SELFPAY ==
[2025-05-24 09:41] LABS: Alanine Aminotransferase 31 U/L (0-40); Albumin Level 4.4 g/dL (3.5-5.0); Alkaline Phosphatase 83 U/L (39-117); Anion Gap 13 (12-20); Aspartate Amino Transferase 25 U/L (5-37); Blood Urea Nitrogen 19 mg/dL (9-16); Calcium 8.6 mg/dL (8.4-10.2); Carbon Dioxide 26 mmol/L (22-29); Chloride 108 mmol/L (96-108); Cholesterol 158 mg/dL (<200); Estimated Glomerular Filt Rate > 60; HDL Cholesterol 32 mg/dL (>40); Potassium 3.9 mmol/L (3.3-5.1); Sodium 143 mmol/L (135-145); Total Protein 6.9 g/dL (6.5-8.0); Triglycerides 89 mg/dL (<150)
[2025-05-24 10:03] LABS: Folate 9.6 ng/mL (> or = 4.0); Vitamin B12 545 pg/mL (200-900)
[2025-05-24 10:03] LABS: Microalbum/Creatinine Ratio Ur 7.4 ug/mg cr (<30)
== END 2025-05-24 07:51 | disposition home or self-care (01) ==
LOC: HO.LAB 07:50
PROVIDERS: PCP Internal Medicine; Visit Provider Internal Medicine
DX: E11.9 Type 2 diabetes mellitus without complications (principal); E53.8 Deficiency of other specified B group vitamins; E55.9 Vitamin D deficiency, unspecified; E78.5 Hyperlipidemia, unspecified; R80.9 Proteinuria, unspecified
CPT/HCPCS: 36415; 80053; 80061; 82043; 82306; 82570; 82607; 82746

== ENCOUNTER 2025-05-29 16:27 | Outpatient (AMB) | payer OTHER, SELFPAY ==
[2025-05-29 16:32] VITALS: BP 150/80; PULSE 84; RESP 18; TEMP 36.4; O2SAT 97; BMI 28.6
--- NOTE | 2025-05-29 16:32 | MHC.PC.OV ---
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 Accompanied by: Self / Same As Patient Allergies peanut (PEANUT) Allergy (Severe, Verified 05/29/25 16:44) ANAPHYLAXIS Medication List - Last Reconciled 05/29/25 by Violeta Ann MD albuterol sulfate 90 mcg/actuation 2 puffs inhalation Q6H PRN amlodipine 10 mg PO DAILY 90 days atorvastatin 20 mg PO BEDTIME 90 days cholecalciferol (vitamin D3) 50 mcg PO DAILY 90 days ibuprofen 800 mg PO Q8H PRN lisinopril 30 mg PO DAILY 90 days metformin 850 mg PO BID 90 days montelukast 10 mg PO BEDTIME prednisone 40 mg (2 x 20 mg) PO DAILY 5 days Tobacco use date assessed: 05/29/25 Dental Screening Dental Screen Date: 05/29/25 Did you have a dental visit in the last 12 months?: No Did you have a dental problem in the last 6 months where you did not have access to dental care?: No Was dental information given to patient?: No HPI HPI Comments History of Present Illness Details The patient is a 64-year-old male presenting for management of chronic conditions including hypertension, hyperlipidemia, and diabetes mellitus. Hypertension has been noted with elevated blood pressure readings, and the current medication regimen includes lisinopril, which is being adjusted from 30 mg to 40 mg to better control blood pressure levels. The patient has been adherent to the medication regimen, and there is no mention of adverse effects from the current treatment. Hyperlipidemia is being monitored with recent laboratory results showing an LDL cholesterol level of 109 mg/dL, which is higher than the previous year when it was 53 mg/dL. The patient is not currently on any lipid-lowering therapy, and dietary modifications have not been discussed in detail. Type 2 Diabetes Mellitus is managed with metformin 850 mg twice daily, and recent laboratory results indicate a blood glucose level of 135 mg/dL and an HbA1c of 7.6%. The patient has not reported any significant symptoms related to diabetes, and there is no mention of complications such as neuropathy or retinopathy. Allergic rhinitis is a chronic condition for which the patient uses Montelukast as needed, although daily use is recommended due to the patient's significant allergy history. The patient experiences frequent allergic symptoms, and adherence to daily medication could improve symptom control. Vitamin D deficiency has been identified, and supplementation has been prescribed to address this deficiency. [facility] Medical History Right shoulder pain Allergic rhinitis Pure hypercholesterolemia Diabetes mellitus Essential hypertension Surgical History History of lipoma Family History Father No problems noted. Mother Diabetes Maternal Grandmother No problems noted. Maternal Grandfather No problems noted. Paternal Grandmother No problems noted. Paternal Grandfather No problems noted. Social History Housing: House Alcohol intake: current Alcohol intake frequency: holidays/special occasions only Alcohol type: other Patient Tobacco Use Status: Former Tobacco user e-Cigarette/Vaping Use: Never Used Second Hand Smoke Exposure: Yes service: No Current occupational status: employed Current occupational exposures/hazards: No Cognitive needs: No Hearing needs: No Vision needs: No Questionnaire PHQ-9 Over the last 2 weeks, how often have you been bothered by any of the following problems? 1. Little interest or pleasure in doing things: not at all 2. Feeling down, depressed, or hopeless: not at all 3. Trouble falling or staying asleep, or sleeping too much: not at all 4. Feeling tired or having little energy: not at all 5. Poor appetite or overeating: not at all 6. Feeling bad about yourself - or that you are a failure or have let yourself or your family down: not at all 7. Trouble concentrating on things, such as reading the newspaper or watching television: not at all 8. Moving or speaking so slowly that other people could have noticed. Or the opposite - being so fidgety or restless that you have been moving around a lot more than usual: not at all 9. Thoughts that you would be better off or of hurting yourself in some way: not at all Total score: 0 Depression Screening Interpretation: Negative Depression Screening Done: Yes 94361 - PHQ-9 Billing: Yes Source: Developed by Drs. Mert De La Torre, Rhona Linn, Ilya Musa and colleagues, with an educational kristina from [employer]. Thrive Questionnaire Date Thrive assessed: 05/29/25 I am a: Patient What is your living situation today?: I choose not to answer this question Within the past 12 months, did the food you bought not last and you didn't have the money to get more?: I choose not to answer this question Within the past 12 months, did you worry whether your food would run out before you got money to buy more?: I choose not to answer this question Do you have trouble paying for medicines?: No Do you have trouble getting transportation to medical appointments?: No Do you have trouble paying your heating and electricity bill?: No Do you have trouble taking care of your child, family member or friend?: No Do you have trouble with day-to-day activities such as bathing, preparing meals, shopping, managing finances, etc.?: No Are you currently unemployed and looking for a job?: No Are you interested in more education?: I choose not to answer this question Please select the resources that you would like help with: None Currently or been in a relationship where the following occur: I choose not to answer THRIVE Score: 0 AUDIT C Alcohol Use Questionnaire (AUDIT-C) 1. How often do you have a drink containing alcohol?: Monthly or less 2. How many drinks containing alcohol do you have on a typical day when you are drinking?: 1 or 2 3. How often do you have six or more drinks on one occasion?: Never Total Score: 1 Score Reviewed/Action Taken: No ERIC-7 AMB Questionnaire ERIC-7 Date ERIC - 7 assessed: 05/29/25 Feeling nervous, anxious, or on edge: 0 = Not at all Not being able to stop or control worryin = Not at all Worrying too much about different things: 0 = Not at all Trouble relaxin = Not at all Being so restless that it is hard to sit still: 0 = Not at all Becoming easily annoyed or irritable: 0 = Not at all Feeling afraid as if something awful might happen: 0 = Not at all Total ERIC-7 score (0-4 normal; 5-9 mild; 10-14 moderate; 15-21 severe): 0 Source: Developed by Drs. Mert De La Torre, Rhona Linn, lIya Musa and colleagues, with an educational kristina from [employer]. ERIC-7 Assessment Billing ERIC-7 Assessment Tool: ERIC-7 Assessment 80693 Review of Systems Const All systems reviewed & are unremarkable except as noted in HPI and below Card Denies chest pain at rest, Denies chest pain with activity, Denies edema, Denies irregular heart rhythm, Denies claudication, Denies dyspnea, Denies dyspnea on exertion, Denies orthopnea, Denies paroxysmal nocturnal dyspnea and Denies slow heart rate Resp Denies cough, Denies dyspnea and Denies dyspnea on exertion Physical exam (Primary Care) Vital Signs: Last Vital Signs Temp 97.5 F 05/29/25 16:32 Pulse 84 05/29/25 16:32 Resp 18 05/29/25 16:32 BP 150/80 H 05/29/25 16:32 Pulse Ox 97 05/29/25 16:32 Oxygen Delivery Method Room Air 05/29/25 16:32 BMI result Body Mass Index 28.6 Tobacco/Smoking Status: Tobacco use Status Tobacco use date assessed 05/29/25 05/29/25 16:41 Patient Tobacco Use Status Former Tobacco user 05/29/25 16:41 e-Cigarette/Vaping Use Never Used 05/29/25 16:41 PHQ-9: PHQ-9 Score PHQ-9: Total score 0 05/29/25 17:17 Depression Screening Interpretation: Negative Thrive Assessment: Date of Thrive Assessment Date Thrive assessed 05/29/25 05/29/25 16:41 Currently or been in a relationship where the following occur: I choose not to answer Resp Effort & Inspection: normal respiratory effort Auscultation: clear to auscultation bilaterally Cardio Jugular venous distension: no JVD Rate: regular rate Rhythm: regular rhythm Heart sounds: S1 normal heart sound present and S2 normal heart sound present Extrem General: Yes full ROM Results AMB Hemoglobin A1c AMB Hemoglobin A1c 7.7 % Last Edit by RYLEE Meek on 05/29/25 17:17 Results Reviewed Results Reviewed: Laboratory Last Values Hgb A1c (Clinic) 7.7 % (4.0-6.0) H 05/29/25 17:02 Coding Level of Care Code Est Pt Level 4 (39387) Complex EM visit Add On G2211 Diagnoses Type 2 diabetes mellitus without complication, without long-term current use of insulin E11.9 Diabetes mellitus complication status: without complication Diabetes mellitus care home insulin use: without care home use Diabetes mellitus type: type 2 Pure hypercholesterolemia E78.00 Essential hypertension I10 Allergic rhinitis J30.9 Additional Codes ERIC-7 Assessment Billing - ERIC-7 Assessment Tool: ERIC-7 Assessment 08509 ([id number]) PHQ-9 - 79734 - PHQ-9 Billing: Yes ([id number]) Time Spent (min) 23 Assessment & Plan Assessment & Plan (1) Diabetes mellitus: Code(s): E11.9 - Type 2 diabetes mellitus without complications Category: Medical Qualifiers: Diabetes mellitus complication status: without complication 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 1. Essential (primary) hypertension I10 The patient's blood pressure is elevated, and the current treatment plan includes increasing the dosage of lisinopril from 30 mg to 40 mg to achieve better control. 2. Hyperlipidemia, unspecified E78.5 The patient's LDL cholesterol level is elevated at 109 mg/dL, and further management may include lifestyle modifications and potential pharmacotherapy, although specific plans were not detailed in the conversation. 3. Type 2 diabetes mellitus without complications E11.9 HCC 19 The patient's diabetes is managed with metformin 850 mg twice daily, and recent lab results show a blood glucose level of 135 mg/dL and an HbA1c of 7.6%. Continued monitoring and adherence to medication are advised. 4. Allergic rhinitis, unspecified J30.9 The patient is advised to use Montelukast daily to manage allergic rhinitis symptoms effectively, given the history of significant allergies. Orders: Orders AMB Hemoglobin A1c 05/29/25 Z13.9 - Encounter for screening, unspecified Medications: New lisinopril 40 mg PO DAILY 90 tabs 1RF 90 days Refilled atorvastatin 20 mg PO BEDTIME 90 tabs 1RF 90 days E78.00 - Pure hypercholesterolemia, unspecified cholecalciferol (vitamin D3) 50 mcg PO DAILY 90 caps 0RF 90 days metformin 850 mg PO BID 180 tabs 1RF 90 days E11.9 - Type 2 diabetes mellitus without complications amlodipine 10 mg PO DAILY 90 tabs 2RF 90 days E11.9 - Type 2 diabetes mellitus without complications Discontinued lisinopril Discontinued Reason: Patient Completed Course 30 mg PO DAILY 90 days 90 tabs 1RF E11.9 - Type 2 diabetes mellitus without complications Patient Instructions: - Increase lisinopril dosage to 40 mg daily as prescribed. - Continue taking metformin 850 mg twice daily. - Use Montelukast daily for allergy management. - Take prescribed Vitamin D supplements. - Get the COVID-19 vaccine before traveling to [place].
== END 2025-05-29 17:01 | disposition home or self-care (01) ==
LOC: HO.HMCH 16:28
PROVIDERS: PCP Internal Medicine; Visit Provider Internal Medicine
DX: Z13.9 Encounter for screening, unspecified (principal)

== ENCOUNTER → 2025-05-29 16:27 | Outpatient (BNVA) | payer OTHER, SELFPAY | PROVIDERS: PCP Internal Medicine; Visit Provider Internal Medicine | DX: E11.9 Type 2 diabetes mellitus without complications (principal); I10 Essential (primary) hypertension; J30.9 Allergic rhinitis, unspecified; E55.9 Vitamin D deficiency, unspecified; E78.00 Pure hypercholesterolemia, unspecified | CPT/HCPCS: 83036; 96127; 99212 ==